=== PATIENT | male | born 1980 | race Caucasian/White ===

== ENCOUNTER → 2024-02-03 09:03 | Outpatient (CLI) | payer OTHER, SELFPAY ==
--- NOTE | 2024-02-03 09:05 | DI.ECHO.S_ITS ---
[facility] : : [address] : : [place] : : [id number] : : Phone: [phone] Echocardiogram Report + + :Name: VICTORINO PICKARD Study Date: 02/03/2024 Height: 70 in : :Hospital ReadingLocation: Weight: 230 lb : : Gender: Male BSA: 2.2 m2 : :: 1980 Age: 43 yrs BP: 120/90 mmHg: :Reason For Study: SINUS TACHYCARDIA : :Ordering Physician: NAHID, : :CON Performed By: Juan Francisco Stephens : :Referring: CON WHITFIELD : + + Interpretation Summary The ejection fraction is estimated to be 55-60%. There is a catheter/pacemaker lead seen in the right atrium. There is no significant valvular heart disease. Procedure: A two-dimensional transthoracic echocardiogram with color flow and Doppler was performed. The study quality was technically adequate. There is no prior echocardiogram noted for this patient. The patient was in sinus rhythm with heart rates between 58-73 bpm during the exam. Left Ventricle: The left ventricle is normal in size and wall thickness. The ejection fraction is estimated to be 55-60%. Left ventricular wall motion is normal. Right Ventricle: The right ventricle is mildly dilated. There is a pacemaker lead in the right ventricle. Right ventricular systolic function is mildly reduced. Atria: The left atrium is mildly dilated. Right atrial size is normal. There is a catheter/pacemaker lead seen in the right atrium. The interatrial septum grossly appears intact with no obvious evidence for an atrial septal defect. Mitral Valve: The mitral valve is normal. There is no mitral valve stenosis. There is trace mitral regurgitation. Aortic Valve: The aortic valve is trileaflet. There is no aortic valve stenosis. No aortic regurgitation is present. Tricuspid Valve: The tricuspid valve is normal. There is no tricuspid stenosis. There is a trace or physiologic amount of tricuspid regurgitation. The right ventricular systolic pressure is estimated to be at least 20.5 mmHg based on an estimated right atrial pressure of 3 mm Hg. Pulmonic Valve: The pulmonic valve is not well visualized. There is no pulmonic valvular stenosis. There is no pulmonic valvular regurgitation. Great Vessels: The aortic root is normal size. The dimensions of the ascending aorta are normal. The IVC is of normal diameter and collapses greater than 50% with a sniff. This suggests a low right atrial pressure of 3 mm Hg. Pericardium/ Pleura There is no pericardial effusion. There is no pleural effusion. MMode/2D Measurements & Calculations LVIDd: 4.9 cm LVOT diam: 2.2 cm LVIDs: 3.2 cm Ao root diam: 2.9 cm FS: 34.9 % asc Aorta Diam: 2.8 cm IVSd: 0.99 cm Ao Arch Diam (Prox Trans): 2.7 cm LVPWd: 1.1 cm LV torres. diameter/BSA (cm/m^2): 2.2 LV sys. diameter/BSA (cm/m^2): 1.4 LA A2 area: 25.5 cm2 RA long axis: 5.1 cm LA A4 area: 24.1 cm2 RA area: 17.0 cm2 LA length (vol): 6.2 cm RA vol: 48.1 ml LA vol: 83.9 ml RA : 21.7 ml/m2 LA vol index: 37.9 ml/m2 IVC diam: 1.8 cm RVD1 (basal): 4.2 cm RVD2 (mid): 4.2 cm TAPSE: 1.7 cm Doppler Measurements & Calculations Ao V2 max: 135.6 cm/sec LVOT Max Willie: 102.2 cm/sec Ao V2 mean: 89.7 cm/sec LV V1 max P.2 mmHg Ao max P.4 mmHg LV V1 VTI: 22.7 cm Ao mean P.6 mmHg DANNY(I,D): 3.2 cm2 Ao V2 VTI: 27.0 cm DANNY(V,D): 2.9 cm2 sev ratio: 0.84 DANNY indexed to BSA (cm^2/m^2): 1.5 MV E max willie: 86.2 cm/sec TR max willie: 209.3 cm/sec MV A max willie: 53.1 cm/sec TR max P.5 mmHg MV E/A: 1.6 PA V2 max: 149.5 cm/sec Med Peak E' Willie: 8.4 cm/sec PA V2 mean: 98.5 cm/sec E/E' med: 10.3 PA mean P.6 mmHg Lat Peak E' Willie: 12.2 cm/sec PA pr(Accel): 15.6 mmHg E/E' lat: 7.1 E/e' average: 8.7 MV dec time: 0.15 sec SV(LVOT): 87.3 ml Reading Physician:[id number] PM
== END ==
LOC: ECHO 09:05
PROVIDERS: PCP Nurse Practitioner Family; Referring Provider Physician Assistant; Visit Provider Orthopaedic Surgery
DX: R00.0 Tachycardia, unspecified (principal); Z95.0 Presence of cardiac pacemaker
CPT/HCPCS: 93306